=== PATIENT | female | born 1985 | race Caucasian/White ===

== ENCOUNTER 2017-11-13 09:45 | Emergency (ER) | payer MEDICAID ==
[2017-11-13 12:51] LABS: URINE BLOOD (Dip) POC Negative (NEGATIVE); URINE GLUCOSE (Dip) POC Negative (NEGATIVE); URINE KETONES (Dip) POC Trace (NEGATIVE); URINE LEUKOCYTE EST (Dip) POC 1+ (NEGATIVE); URINE NITRITE (Dip) POC Negative (NEGATIVE); URINE TOTAL PROTEIN POC Negative (NEGATIVE)
[2017-11-13 12:51] LABS: URINE PH (Dip) POC 7.5 (5.0-8.5)
[2017-11-13] MEDS: ACETAMINOPHEN 500 MG TAB PO (12:53)
[2017-11-13] MEDS: ONDANSETRON (ODT) 4 MG TAB ODT (12:53)
== END 2017-11-13 13:41 | disposition home or self-care (01) ==
LOC: FTE 09:45
DX: N12 Tubulo-interstitial nephritis, not specified as acute or chronic (principal); R40.2412 Glasgow coma scale score 13-15, at arrival to emergency department
CPT/HCPCS: 81003; 99284

== ENCOUNTER 2019-04-06 01:08 | Inpatient (IN) | payer MEDICAID, OTHER ==
[2019-04-06 01:42] LABS: ADD MAN DIFF? NO
[2019-04-06 01:44] LABS: WHITE BLOOD COUNT 9.3 10^3/ul (4.8-10.8)
[2019-04-06 01:44] LABS: BASOPHILS % 0.2 % (0.0-2.0); EOSINOPHILS % 0.1 % (0.0-7.0); HEMATOCRIT 36.6 % (37.0-47.0); HEMOGLOBIN 12.9 g/dl (12.0-16.0); LYMPHOCYTES # 1.1 10^3/ul (0.8-2.9); LYMPHOCYTES % 11.9 % (15.0-51.0); MEAN CORPUSCULAR HEMOGLOBIN 29.9 pg (29.0-33.0); MEAN CORPUSCULAR HGB CONC 35.2 g/dl (32.0-37.0); MEAN CORPUSCULAR VOLUME 84.7 fl (82.0-101.0); MEAN PLATELET VOLUME 10.9 fl (7.4-10.4); MONOCYTE # 0.6 10^3/ul (0.3-0.9); MONOCYTES % 6.5 % (0.0-11.0); NEUTROPHIL # 7.5 10^3/ul (1.6-7.5); NEUTROPHILS % 80.9 % (39.0-77.0); PLATELET COUNT 217 10^3/UL (140-415); RED BLOOD COUNT 4.32 10^6/ul (4.20-5.40); RED CELL DISTRIBUTION WIDTH 12.3 % (11.5-14.5)
[2019-04-06 01:50] LABS: ADD UMIC YES; UR ASCORBIC ACID NEGATIVE (NEGATIVE); UR BILIRUBIN (Dip) NEGATIVE (NEGATIVE); UR BLOOD (Dip) 1+ mg/dL (NEGATIVE); UR CLARITY SLIGHTLY CLOUDY (CLEAR); UR COLOR YELLOW (YELLOW); UR GLUCOSE (Dip) NEGATIVE (NEGATIVE); UR KETONES (Dip) NEGATIVE (NEGATIVE); UR LEUKOCYTE ESTERASE (Dip) NEGATIVE Leu/ul (NEGATIVE); UR MUCUS FEW /HPF (NONE SEEN); UR NITRITE (Dip) NEGATIVE (NEGATIVE); UR RBC 2 /HPF (0-5); UR TOTAL PROTEIN (Dip) NEGATIVE (NEGATIVE); UR UROBILINOGEN (Dip) 1+ mg/dL (NEGATIVE); UR WBC 3 /HPF (0-5)
[2019-04-06 02:01] LABS: ALANINE AMINOTRANSFERASE 25 IU/L (13-69); ALBUMIN 4.6 g/dl (3.3-4.9); ALBUMIN/GLOBULIN RATIO 1.15; ALKALINE PHOSPHATASE 98 IU/L (42-121); ANION GAP 14 (5-13); ASPARTATE AMINO TRANSFERASE 26 IU/L (15-46); BILIRUBIN,INDIRECT 0.5 mg/dl (0-1.1); BILIRUBIN,TOTAL 0.5 mg/dl (0.2-1.3); BLOOD UREA NITROGEN 9 mg/dl (7-20); CALCIUM 9.3 mg/dl (8.4-10.2); CARBON DIOXIDE 20 mmol/L (21-31); CHLORIDE 109 mmol/L (97-110); CREATININE 0.53 mg/dl (0.44-1.00); Estimated GFR > 60 mL/min (>60); GLUCOSE 128 mg/dl (70-220); LIPASE 54 U/L (23-300); POTASSIUM 3.5 mmol/L (3.5-5.1); SODIUM 143 mmol/L (135-144); TOTAL PROTEIN 8.6 g/dl (6.1-8.1)
[2019-04-06 02:03] LABS: INR 1.02; PARTIAL THROMBOPLASTIN TIME 26.6 Sec (23.0-35.0); PROTIME 13.5 Sec (11.9-14.9); PT RATIO 1.1
[2019-04-06] MEDS: morphine 4 MG/ML VIAL IV (02:04)
[2019-04-06] MEDS: ONDANSETRON 4 MG INJ IV (02:04)
[2019-04-06] MEDS: ACETAMINOPHEN 325 MG TAB PO ×2 (02:04→16:13)
[2019-04-06] MEDS: SODIUM CHLORIDE 0.9% 1L BAG IV* (02:04)
[2019-04-06 02:12] LABS: TROPONIN-I < 0.012 ng/ml (0.000-0.120)
[2019-04-06] MEDS: CEFEPIME 2GM/50 ML (PMX) 50 ML IVPB (02:12)
[2019-04-06] MEDS: VANCOMYCIN 1 GM (PMX) 250 ML IVPB (02:40)
[2019-04-06] MEDS ORDERED: ONDANSETRON 4 MG INJ IV (04:00)
[2019-04-06] MEDS ORDERED: ACETAMINOPHEN 325 MG TAB PO (04:00)
[2019-04-06 04:02] LABS: LACTIC ACID 0.9 mmol/L (0.5-2.0)
[2019-04-06] MEDS ORDERED: VANCOMYCIN IV PER PHARMACY XX (04:30)
[2019-04-06] MEDS: IOHEXOL 14.3 MG(I)/ML (ADULT) BTL PO (04:30)
[2019-04-06] MEDS ORDERED: HYDROmorphONE 0.5 MG/0.5 ML SYG IV (04:30)
[2019-04-06] MEDS ORDERED: BISACODYL (EC) 5 MG TAB PO ×2 (04:30→10:30)
[2019-04-06] MEDS ORDERED: NACL 0.9% 3 ML SYG IV (04:30)
[2019-04-06 04:50] LABS: AMPHETAMINE/METHAMPHETAMINE Negative (NEGATIVE); BARBITURATES Negative (NEGATIVE); COCAINE Negative (NEGATIVE); OPIATES Negative (NEGATIVE)
[2019-04-06] MEDS: IOHEXOL 300MG/ML 150 ML BTL (04:56)
[2019-04-06] MEDS: SOD CHLORIDE 0.9% 100 ML (04:57)
[2019-04-06 04:59] LABS: BENZODIAZEPINES Negative (NEGATIVE)
[2019-04-06 05:00] LABS: CANNABINOIDS Negative (NEGATIVE)
[2019-04-06] MEDS: SOD CHLORIDE 0.9% 1,000 ML IV ×2 (05:14→16:07)
[2019-04-06 05:43] LABS: ADD MAN DIFF? NO
[2019-04-06 05:48] LABS: WHITE BLOOD COUNT 5.9 10^3/ul (4.8-10.8)
[2019-04-06 05:48] LABS: BASOPHILS % 0.3 % (0.0-2.0); HEMATOCRIT 31.7 % (37.0-47.0); HEMOGLOBIN 10.7 g/dl (12.0-16.0); LYMPHOCYTES # 0.9 10^3/ul (0.8-2.9); LYMPHOCYTES % 14.6 % (15.0-51.0); MEAN CORPUSCULAR HEMOGLOBIN 29.6 pg (29.0-33.0); MEAN CORPUSCULAR HGB CONC 33.8 g/dl (32.0-37.0); MEAN CORPUSCULAR VOLUME 87.8 fl (82.0-101.0); MEAN PLATELET VOLUME 10.6 fl (7.4-10.4); MONOCYTE # 0.4 10^3/ul (0.3-0.9); MONOCYTES % 7.1 % (0.0-11.0); NEUTROPHIL # 4.6 10^3/ul (1.6-7.5); NEUTROPHILS % 77.5 % (39.0-77.0); PLATELET COUNT 176 10^3/UL (140-415); RED BLOOD COUNT 3.61 10^6/ul (4.20-5.40); RED CELL DISTRIBUTION WIDTH 12.5 % (11.5-14.5)
[2019-04-06 05:56] LABS: HEMOGLOBIN A1C 5.2 % (0-5.9)
[2019-04-06] MEDS: DIPHENHYDRAMINE 50 MG INJ IV (06:14)
[2019-04-06 06:21] LABS: ALANINE AMINOTRANSFERASE 31 IU/L (13-69); ALBUMIN 3.4 g/dl (3.3-4.9); ALBUMIN/GLOBULIN RATIO 1.17; ALKALINE PHOSPHATASE 76 IU/L (42-121); ANION GAP 6 (5-13); ASPARTATE AMINO TRANSFERASE 19 IU/L (15-46); BILIRUBIN,INDIRECT 0.4 mg/dl (0-1.1); BILIRUBIN,TOTAL 0.4 mg/dl (0.2-1.3); BLOOD UREA NITROGEN 6 mg/dl (7-20); CALCIUM 7.2 mg/dl (8.4-10.2); CARBON DIOXIDE 21 mmol/L (21-31); CHLORIDE 114 mmol/L (97-110); CHOL/HDL RATIO 3.4 RATIO; CHOLESTEROL 93 mg/dl (100-200); CREATININE 0.53 mg/dl (0.44-1.00); Estimated GFR > 60 mL/min (>60); GLUCOSE 108 mg/dl (70-220); HDL CHOLESTEROL 27 mg/dl (34-82); LDL CHOLESTEROL,CALCULATED 61 mg/dl; POTASSIUM 3.7 mmol/L (3.5-5.1); SODIUM 141 mmol/L (135-144); TOTAL PROTEIN 6.3 g/dl (6.1-8.1); TRIGLYCERIDES 27 mg/dl (0-149)
[2019-04-06 06:22] LABS: LACTIC ACID 0.8 mmol/L (0.5-2.0)
[2019-04-06 06:47] LABS: THYROID STIMULATING HORMONE 0.447 MIU/L (0.465-4.680)
[2019-04-06 06:47] LABS: ERYTHROCYTE SEDIMENTATION RATE 15 mm/Hr (0-20)
[2019-04-06] MEDS: KETOROLAC 15 MG INJ IV (07:00)
[2019-04-06] MEDS: PIPER-TAZO 3.375 GM IV (PMX) 100 ML IVPB ×4 (07:05→23:47)
[2019-04-06] MEDS: VANCOMYCIN 500 MG (PMX) 100 ML IVPB ×2 (09:08→17:29)
[2019-04-06] MEDS: SENNA/DOCUSATE NA (8.6MG/50MG) TAB PO ×2 (10:21→20:45)
[2019-04-06] MEDS: POLYETHYLENE GLYCOL 17 GM PACKET PO (10:21)
[2019-04-06] MEDS ORDERED: BISACODYL 10 MG SUPP PR (10:30)
[2019-04-06] MEDS: DOCUSATE SODIUM 100 MG CAP PO (20:45)
[2019-04-07 01:11] LABS: VANCOMYCIN,TROUGH 6.5 ug/ml (10.0-20.0)
[2019-04-07] MEDS: VANCOMYCIN 500 MG (PMX) 100 ML IVPB (01:44)
[2019-04-07] MEDS: SOD CHLORIDE 0.9% 1,000 ML IV ×2 (05:10→10:15)
[2019-04-07] MEDS: PIPER-TAZO 3.375 GM IV (PMX) 100 ML IVPB ×2 (05:32→11:57)
[2019-04-07 05:55] LABS: ADD MAN DIFF? NO
[2019-04-07 05:58] LABS: ABNORMAL IP MESSAGE 1; BASOPHILS % 0.5 % (0.0-2.0); EOSINOPHILS # 0.1 10^3/ul (0.0-0.5); EOSINOPHILS % 1.9 % (0.0-7.0); HEMATOCRIT 32.5 % (37.0-47.0); HEMOGLOBIN 10.9 g/dl (12.0-16.0); LYMPHOCYTES # 2.2 10^3/ul (0.8-2.9); MEAN CORPUSCULAR HEMOGLOBIN 29.9 pg (29.0-33.0); MEAN CORPUSCULAR HGB CONC 33.5 g/dl (32.0-37.0); MEAN PLATELET VOLUME 10.9 fl (7.4-10.4); MONOCYTE # 0.5 10^3/ul (0.3-0.9); MONOCYTES % 13.6 % (0.0-11.0); NEUTROPHIL # 0.8 10^3/ul (1.6-7.5); NEUTROPHILS % 22.7 % (39.0-77.0); PLATELET COUNT 168 10^3/UL (140-415); RED BLOOD COUNT 3.65 10^6/ul (4.20-5.40); RED CELL DISTRIBUTION WIDTH 13.1 % (11.5-14.5)
[2019-04-07 05:58] LABS: WHITE BLOOD COUNT 3.7 10^3/ul (4.8-10.8)
[2019-04-07 06:23] LABS: POSITIVE DIFF @See below
[2019-04-07 06:45] LABS: ALANINE AMINOTRANSFERASE 34 IU/L (13-69); ALBUMIN 3.4 g/dl (3.3-4.9); ALBUMIN/GLOBULIN RATIO 1.03; ALKALINE PHOSPHATASE 68 IU/L (42-121); ANION GAP 9 (5-13); ASPARTATE AMINO TRANSFERASE 25 IU/L (15-46); BILIRUBIN,INDIRECT 0.4 mg/dl (0-1.1); BILIRUBIN,TOTAL 0.4 mg/dl (0.2-1.3); BLOOD UREA NITROGEN 6 mg/dl (7-20); CALCIUM 8.3 mg/dl (8.4-10.2); CARBON DIOXIDE 24 mmol/L (21-31); CHLORIDE 112 mmol/L (97-110); CREATININE 0.53 mg/dl (0.44-1.00); Estimated GFR > 60 mL/min (>60); GLUCOSE 83 mg/dl (70-220); POTASSIUM 3.8 mmol/L (3.5-5.1); SODIUM 145 mmol/L (135-144); TOTAL PROTEIN 6.7 g/dl (6.1-8.1)
[2019-04-07] MEDS: VANCOMYCIN 1 GM (PMX) 250 ML IVPB ×2 (09:10→15:34)
[2019-04-07] MEDS: POLYETHYLENE GLYCOL 17 GM PACKET PO (09:10)
[2019-04-07] MEDS: SENNA/DOCUSATE NA (8.6MG/50MG) TAB PO (09:11)
== END 2019-04-07 17:57 | disposition home or self-care (01) | DRG 392 ==
LOC: E/R 01:08 → PP2 03:33
DX: A08.4 Viral intestinal infection, unspecified (principal); K59.00 Constipation, unspecified
CPT/HCPCS: 36415; 71045; 74176; 74177; 80053; 80061; 80202; 80307; 81001; 81025; 83036; 83605; 83690; 84443; 84484; 85025; 85610; 85651; 85730; 86140; 87040-91; 87086; 93005; 96365; 96375; 99285-25